=== PATIENT | female | born 1935 | race Caucasian/White ===

== ENCOUNTER → 2017-04-26 | Outpatient (CLI) | payer MEDICARE | END | disposition home or self-care (01) | LOC: CFH 13:52 | PROVIDERS: ATTEND Family Medicine | DX: Z12.31 Encounter for screening mammogram for malignant neoplasm of breast (principal) | CPT/HCPCS: 77063; G0202 ==

== ENCOUNTER → 2019-05-16 | Outpatient (CLI) | payer MEDICARE ==
[~2019-05-16] MED LIST: ACET-1600 PO; AMIT50TA PO; AMLO10TA8 PO; CARV-39 PO; DENO60DI SQ; LOSA50TA14 PO; OMEP-110 PO; TEMA30CA PO; [UNRECOGNIZED DRUG - OTHER] PO; albuterol NEB; trelegy inhaler INH
== END | disposition home or self-care (01) ==
LOC: CFH 10:19
PROVIDERS: ATTEND Family Medicine
DX: Z12.31 Encounter for screening mammogram for malignant neoplasm of breast (principal)
CPT/HCPCS: 77063; 77067